=== PATIENT | male | born 1950 | race Caucasian/White ===

== ENCOUNTER 2020-07-13 16:47 | Emergency (ER) | payer MEDICARE, SELFPAY ==
[2020-07-13 16:48] VITALS: BP 101/62; PULSE 90; RESP 17; TEMP 36.9; O2SAT 95; BMI 24.5
[2020-07-13 17:27] LABS: Absolute Lymphocyte Count 0.53 X10^3/uL (0.83-4.51); Absolute Neutrophil Count 8.1 X10^3/uL (2.0-7.7); Basophil# 0.02 X10^3/uL; Basophil% 0.2 % (0-1); Eosinophil# 0.01 X10^3/uL; Eosinophils% 0.1 % (0-5); Hematocrit 45.7 % (40-54); Hemoglobin 15.9 g/dL (13.0-16.5); Lymphocyte # 0.53 X10^3/ul (4.0); Lymphocyte % 5.7 % (19-41); Mean Corp Hgb Conc 34.8 g/dL (32-36); Mean Corpuscular Hgb 31.8 pg (27.0-32.0); Mean Corpuscular Volume 91.4 fL (80-94); Mean Platelet Vol. 11.3 fl (6.2-12.0); Monocyte# 0.57 X10^3/uL; Monocyte% 6.1 % (0-10); NRBC Flagged by Analyzer 0 % (0-5); Neutrophil % 87.4 % (47-70); POSITIVE DIFFERENTIAL YES; Platelet Count 242 K/mm3 (150-450); White Blood Count 9.3 K/mm3 (4.4-11.0)
[2020-07-13 17:29] LABS: Differential Indicated SCAN CRITERIA MET
[2020-07-13 17:49] LABS: Differential Comment SCANNED
[2020-07-13 18:03] LABS: Anion Gap 7 (5-15); BUN 26 mg/dL (7-18); BUN/Creat Ratio 19.8 RATIO (10-20); Calcium,Total 8.8 mg/dL (8.5-10.1); Chloride 98 mmol/L (98-107); Creatinine, Serum 1.31 mg/dL (0.70-1.30); EST Glomerular Filtration Rate 57 mL/min (>60); Est Glom Filt Rate - Afr Amer 70 mL/min (>60); Estimated Creatinine Clearance 57.59 ml/min; Glucose 110 mg/dL (74-106); Potassium 3.6 mmol/L (3.5-5.1); Sodium Level 131 mmol/L (136-145)
--- NOTE | 2020-07-13 18:33 | ED.DCSUM_ITS ---
History of Present Illness Chief Complaint: Nausea/Vomiting/Diarrhea Informant: Patient Onset: Today Narrative: 70-year-old male with past medical history of hypertension and GERD presents with concern for upper respiratory symptoms with nausea. States that approximately 3 weeks ago he received a flu shot and 10 days following began having upper respiratory symptoms. Describes it as a head cold. States he does get sinus infections regularly in the winter. States that over the past few days he has had nausea without vomiting. States he fell in the shower last night and did not strike his head. States he has been feeling somewhat off balance. Denies any urinary symptoms. States that he does have lower back pain. This was present before his fall. Past Medical History - Allergies and Home Meds Allergies/Adverse Reactions: Allergies No Known Allergies Allergy (Verified 07/13/20 16:48) Primary Care Physician: Farhat Coppola MD [Primary Care Provider] - Prior records reviewed: Yes Past Medical History: - - HTN and GERD Lives: Spouse/ Significant Other Smoking Status: Never smoker Alcohol: None Drugs: None Review of Systems General: Reports: Malaise. Denies: Chills, Fever, Sweats Eyes: Denies: Visual changes - bilaterally, Diplopia ENT: Denies: Rhinorrhea, Sore throat Cardiovascular: Denies: Chest pain, Palpitations Respiratory: Reports: Cough. Denies: Dyspnea, Dyspnea on exertion Gastrointestinal: Reports: Nausea. Denies: Abdominal pain, Vomiting, Diarrhea, Melena, Hematochezia Genitourinary: Denies: Dysuria, Hematuria, Frequency Musculoskeletal: Denies: Back pain, Extremity Pain Skin: Denies: Rash, Wounds Neurological: Denies: Headache, Weakness, Numbness Physical Exam Vital Signs/Narrative: Vital Signs Temp Pulse Resp BP Pulse Ox 07/13/20 16:48 98.4 F 90 17 101/62 95 Inital Vital Signs reviewed: Yes General: Well nourished, Well developed, No Acute Distress Head: Normocephalic, Atraumatic Eyes: Perrl, EOMI ENT: Moist mucous membranes, No rhinorrhea Neck: Supple, Nontender Cardiovascular: Regular rate, Regular rhythm, No murmurs Respiratory: No distress, CTA bilaterally, Chest nontender Abdomen: Soft, Nontender, Nondistended, Normal bowel sounds Back: Nontender, Normal Inspection Extremities: Nontender, No edema Skin: Normal color, No rash Neurological: Alert, Oriented x3, Cranial nerves II-XII grossly intact, Normal Strength, Normal Sensation Psychological: Normal affect, Normal Mood Diagnostic/Tx/Re-eval Chest X-Ray - ED: 1 View, Read by ED Physician, Normal Clinical Impression(s) from Imaging Studies Chest X-Ray 07/13/20 19:35 IMPRESSION: No acute cardiopulmonary disease. Electronically Signed: Jey Ness DO at 20:00 EST Tel [phone], Service support , Laboratory Data 07/13/20 07/13/20 07/13/20 16:35 16:35 16:55 WBC 9.3 RBC 5.00 Hgb 15.9 Hct 45.7 MCV 91.4 MCH 31.8 MCHC 34.8 RDW Std Deviation 40.0 RDW Coeff of Leon 12.0 Plt Count 242 MPV 11.3 Immature Gran % (Auto) 0.500 Neut % (Auto) 87.4 H Lymph % (Auto) 5.7 L [place] % (Auto) 6.1 Eos % (Auto) 0.1 Baso % (Auto) 0.2 Absolute Neuts (auto) 8.1 H Absolute Lymphs (auto) 0.53 L Nucleated RBC % 0 Differential Comment SCANNED Sodium 131 L Potassium 3.6 Chloride 98 Carbon Dioxide 26.0 Anion Gap 7 BUN 26 H Creatinine 1.31 H Estim Creat Clear Calc 57.59 Est GFR (MDRD) Af Amer 70 Est GFR (MDRD) Non-Af 57 L BUN/Creatinine Ratio 19.8 Glucose 110 H Calcium 8.8 Troponin I < 0.015 Lipase 346 - Rhythm Strip Rhythm Strip: Sinus Rhythm Rate: 86 Ectopy: None - EKG Initial EKG Interpretation: Sinus Rhythm - Normal sinus rhythm at 86 bpm. NV interval 146 ms. QTC of 464 ms. Right bundle branch block. No evidence of acute ST elevation or depression at this time. - Medical Decision Making Patient appears well and nontoxic. Vital signs within normal limits. EKG nonischemic. Troponin negative. Slight volume depletion. Patient was given 500 mL fluid bolus. Patient feeling improved. Patient be given Zofran for home given his nausea. Patient will be tested for Covid as an outpatient. Asked to return for new or worsening symptoms. Advised on obtaining a pulse oximeter and returning for oxygen saturations less than 90%. Patient agreeable and discharged home in stable condition. Impression: 1. URI 2. Nausea 3. Possible COVID 19 pneumonitis ED Disposition - Plan for ED Patient: Disposition: Home or Assisted Living Instructions: ED PNEUMONITIS Adult Prescriptions: Ondansetron [Zofran Odt] 4 mg PO Q8H PRN PRN #10 tab PRN Reason: Nausea Prescription Printed Referrals: Farhat Coppola MD [Primary Care Provider] - 2 Days
--- NOTE | 2020-07-13 18:34 | EKG12_ITS ---
Test Reason : NAUSEA/VOMITING Blood Pressure : / mmHG Vent. Rate : 086 BPM Atrial Rate : 086 BPM P-R Int : 146 ms QRS Dur : 126 ms QT Int : 388 ms P-R-T Axes : 060 029 009 degrees QTc Int : 464 ms Normal sinus rhythm Right bundle branch block Abnormal ECG Confirmed by JOSSY LUJAN, CARROLL ([id number]), news editor VERÓNICA ALVAREZ ([id number]) on 07/16/2020 2:14:23 PM Referred By: ANTONIA Confirmed By:CARROLL FENTON MD
[2020-07-13 19:34] VITALS: BP 109/92; PULSE 83; RESP 28; O2SAT 94
--- NOTE | 2020-07-13 19:35 | RAD_ITS ---
STUDY: X-RAY CHEST REASON FOR EXAM: Male, 70 years old. Nausea, vomiting and diarrhea for 2 days. Fall last night. TECHNIQUE: Single AP portable view of the chest. COMPARISON: None. FINDINGS: The lungs are clear and expanded. There is no demonstrated pleural abnormality. Normal size heart. Normal mediastinum and nicole. Normal visualized pulmonary arteries. Normal visualized aortic arch and descending thoracic aorta. There are diffuse degenerative changes of the visualized thoracic spine. Normal visualized ribs, clavicles, and shoulders. There is no demonstrated abnormality of the visualized soft tissue structures of the upper abdomen. RAD/Chest 1 View (Portable) IMPRESSION: No acute cardiopulmonary disease. Electronically Signed: Jey Ness DO at 20:00 EST Tel [phone], Service support ,
[2020-07-13 21:11] LABS: Lipase 346 U/L (73-393)
[2020-07-13 22:05] VITALS: BP 117/60; PULSE 73; RESP 24; O2SAT 94
[2020-07-13 23:14] VITALS: BP 110/65; PULSE 84; RESP 18; O2SAT 95
== END 2020-07-14 | disposition home or self-care (01) ==
PROVIDERS: Emergency Provider Emergency Medicine; PCP Family Medicine
DX: J06.9 Acute upper respiratory infection, unspecified (principal); R11.2 Nausea with vomiting, unspecified
CPT/HCPCS: 71045; 80048; 83690; 84484; 85025; 87635; 93005; 96360; 96361; 99283; J7040; A4216; U0003

== ENCOUNTER 2020-07-29 17:08 | Emergency (ER) | payer MEDICARE, SELFPAY ==
[2020-07-29 17:11] VITALS: BP 125/68; PULSE 97; RESP 17; TEMP 36.7; O2SAT 97; BMI 23.9
--- NOTE | 2020-07-29 17:51 | ED.DCSUM_ITS ---
- ER Visit Summary Date of Service: 07/29/20 Chief Complaint: Fall and hit a checkout operator causing a laceration to the lower border of his nose on the left side. History of Present Illness: The patient is a 70 M uses a cane as a history of problems with his balance, reflux, hypertension and status post diagnosed with Covid 2+ weeks ago. Patient states he simply lost his balance today when he bent over to get something tripped stumbled into the checkout operator causing a laceration to the undersurface of his upper lip and nose. He also knocked loose with his left upper incisors. He denies any LOC. Denies any neck pain. Denies any other injuries. Last tetanus shot was 2016 4 years ago. Physical Examination: Older male no acute distress vital signs stable afebrile. H EENT exam is a superficial laceration to the lateral aspect of his left nose it does not go through and through it does not go into the naris but on that inferior surface of his nose and upper lip but it does not involve the lip or the vermilion border he has a deep laceration involves the skin and subcu tissue. Mild oozing. No pulsatile bleeding. His left upper pre-molar is loose but still in place. Jaw is nontender to open close his mouth. No other facial trauma. Scalp nontender no trauma. C-spine nontender. Normal range of motion. Lungs clear to auscultation. Chest wall nontender. Heart regular rate and rhythm no murmur. Abdomen soft nontender normal bowel sounds no peritoneal signs. Pelvic girdle intact. He is moving all 4 extremities. 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 Normal dorsi plantarflexion. Back is nontender. There is no deformities or tenderness to any of the extremities. Neurologically is awake and alert. Test Results: None Emergency Department Course and Treatment: Tetanus is already up-to-date. V applied to the facial laceration involving the left part of his nose. It will be locally anesthetized with lidocaine. Cleaned explored and closed using 5-0 Ethilon sutures. Proper hemostasis wound closure is obtained. There is no foreign body. He was instructed on wound care. Procedure note there is actually 2 lacerations. The left lateral nose and I cleaned it separate had to be closed. It was anesthetized with subcu lidocaine. Washed explored and closed using 4 simple interrupted 5-0 Ethilon sutures. Proper hemostasis wound closure is obtained. Is approximately 3 cm in length. The laceration below his left nares on the skin was approximately 3 to 4 cm in length. Again locally anesthetized. Clean washed explored and closed using 5 simple interrupted 5-0 Ethilon sutures. There were a total of 9 sutures used. Patient tolerated procedure well. Good hemostasis wound closure obtained. Treatment Plan: Wound care. Watch for any signs of infection. Ice to the area. Tylenol for pain. Suture removal in 7 to 10 days. Return if any signs of infection. Disposition: Discharge Impression: Fell Left facial laceration between the nose and lip laceration of 6-7 cm with ER repair Left upper premolar partial avulsion This note was generated with [employer] dictation software. It may contain incorrect words, spelling, and punctuation that were not noted in review of the chart prior to signing ED Disposition - Plan for ED Patient: Disposition: Home or Assisted Living Instructions: Dental Trauma, ED Laceration All Closures Referrals: Farhat Coppola MD [Primary Care Provider] - 10 Day for suture removal Additional Instructions: Tylenol for pain. Keep the laceration clean. May use soap and water or peroxide and water. Keep it dry. You may shower or bathe which is dried off well. Watch for any signs of infection such as pus, swelling, redness or fever seen return. Suture removal in 7 to 10 days. Follow-up with your dentist to have that left upper tooth reevaluated. It was obviously knocked loose when you fell.
--- NOTE | 2020-07-29 17:54 | ED.DEP ---
ED Disposition - Plan for ED Patient: Disposition: Home or Assisted Living Instructions: ED Laceration All Closures, Dental Trauma Referrals: Farhat Coppola MD [Primary Care Provider] - 10 Day for suture removal Additional Instructions: Tylenol for pain. Keep the laceration clean. May use soap and water or peroxide and water. Keep it dry. You may shower or bathe which is dried off well. Watch for any signs of infection such as pus, swelling, redness or fever seen return. Suture removal in 7 to 10 days. Follow-up with your dentist to have that left upper tooth reevaluated. It was obviously knocked loose when you fell.
[2020-07-29] MEDS: Lidocaine 1% (20 ml mdv) 20 ML Vial INFILT (18:09)
== END 2020-07-29 18:51 | disposition home or self-care (01) ==
PROVIDERS: Emergency Provider Emergency Medicine; PCP Family Medicine
DX: S01.81XA Laceration without foreign body of other part of head, initial encounter (principal); S01.511A Laceration without foreign body of lip, initial encounter; K21.9 Gastro-esophageal reflux disease without esophagitis; W19.XXXA Unspecified fall, initial encounter
CPT/HCPCS: 12014; 99282

== ENCOUNTER 2024-07-30 13:52 | Emergency (ER) | payer MEDICARE, SELFPAY ==
[2024-07-30 13:53] VITALS: BP 145/102; PULSE 83; RESP 16; TEMP 36.5; O2SAT 100; BMI 24.7
--- NOTE | 2024-07-30 14:20 | EDS_ITS ---
HPI History of Present Illness Chief Complaint: Lower Extremity Injury Detail of Chief Complaint: Lower back pain resolved. Informant: patient Onset/Context/Timing Onset: Today Injury: lifting Timing: Intermittent Quality: Sharp Location: Lumbar, Buttock and Left Leg Current Severity: Gone Maximum Severity: Mild Worsened by: improves with Movement Relieved by: Remaining Still Associated Symptoms Associated Symptoms: Radiation to Left Leg Narrative Narrative: 74-year-old male was carrying about 30 pound box since her to slip and he developed pain in his lower back left buttock and left leg. That is now completely resolved. At the time it was worse with movement. He had some weakness in his left knee is developed. It is all now totally resolved. He denies any pain in his back or leg. No weakness. No bowel or bladder incontinence. No retention. No numbness. No prior back history of back surgery. He did not fall. Prior similar symptoms: No Recent Illness/Hospitalization: No PFSH PFS Medical History Acid reflux HTN (hypertension) Home Medications ?Medication ?Instructions ?Recorded ?Last Taken ?Type ondansetron 4 mg disintegrating 4 mg PO Q8H PRN PRN Nausea #10 tabs 07/13/20 Unknown Rx tablet lisinopril 10 1 ea PO 07/29/20 Unknown History mg-hydrochlorothiazide 12.5 mg tablet omeprazole 20 mg capsule,delayed 20 mg PO DAILY 07/29/20 Unknown History release Allergy/AdvReac Type Severity Reaction Status Date / Time No Known Allergies Allergy Verified 07/30/24 13:53 Social History Smoking Status: Never smoker ROS ROS ED ROS Narrative Denies recent illness. Constitutional Constitutional ED: Denies chills or fever(s) Eyes Eyes: Denies blurry vision ENT ENT ED: Denies ear pain Respiratory/Chest Respiratory/Chest: Denies dyspnea Gastrointestinal Gastrointestinal: Denies abdominal pain Musculoskeletal Musculoskeletal: Denies arthralgias Integumentary Denies abscess Neurologic Neurologic: Denies headache(s) Psychiatric Psychiatric: Denies anxiety or depression Endocrine Endocrinology: Denies cold intolerance Hematologic/Lymphatic Hematologic/Lymphatic: Denies easy bleeding Allergic/Immunologic Allergic/Immunologic ED: Denies mouth swelling EXAM Physical Exam Narrative Exam Narrative: Well-appearing 74-year-old male. Vital signs stable afebrile. H EENT exam unremarkable. Mytrex members. Neck nontender. Lungs clear to auscultation bilateral. Heart regular rate and rhythm rate about 80 no murmur. Chest wall ribs nontender. Abdomen soft nontender. Moving all 4 extremities. 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 Dorsi plantarflexion intact. 5 out of 5 strength. Normal sensation. No cauda equina. No saddle anesthesia. Normal medial thigh sensation. Negative straight leg raise bilaterally. Normal range of motion both upper and lower extremities. Back currently has absolutely no reproducible tenderness on his back. No spinal tenderness. No paraspinal tenderness. No redness or warmth no bruising. He can sit up and lay down without any difficulty. Neurologically he is awake and alert. With normal motor strength and sensation. No weakness. Const Vital Signs: 07/30/24 13:53 Temperature 97.7 F L Temperature Source Temporal Pulse Rate 83 Respiratory Rate 16 Blood Pressure 145/102 H Blood Pressure Mean 116 Pulse Ox 100 Oxygen Delivery Method Room Air Positive well nourished and well developed; Negative for obese, cachectic, contractures or unkempt General Appearance ED: well developed and NAD; Negative for unkempt, cachectic, contractures or pallor Nutritional Appearance: Negative for cachectic or obese HEENT Reports moist mucous membranes Negative for trauma or tenderness Eyes PERRL and EOMs intact bilaterally General Eye ED: Negative for pale conjunctiva or scleral icterus Neck no lymphadenopathy, supple and no JVD General: Negative for tenderness Thyroid: Negative for other Chest Wall Chest: Negative for other Resp normal respiratory effort and clear to auscultation bilaterally Effort and Inspection: Negative for pain with movement Auscultation: Negative for rales, rhonchi or wheezes Cardio regular rate, regular rhythm, S1 normal heart sound, S2 normal heart sound and no murmurs Palpation: Negative for palpable S3 Rate: Negative for bradycardia or tachycardic Rhythm: Negative for abnormal rhythm Bruits: Negative for other GI normal to inspection, nondistended, normoactive bowel sounds, soft to palpation, non-tender, non-distended and no masses Inspection: Negative for abdominal distention Palpation: Negative for tender, guarding or rebound tenderness present Back/Spine normal to inspection and no thoracic nor lumbar tenderness General Back: Negative for CVA tenderness Cervical Spine: Negative for cervical spine tenderness Thoracic Spine / Upper Back: Negative for paraspinal muscle tenderness Lumbar Spine / Lower Back: Negative for ROM limited Extremity normal to inspection and no clubbing, cyanosis or edema General Extremety ED: Negative for edema or tenderness General Extremity: Negative for edema Neuro oriented x3 and no sensory deficits noted Sensorium / Orientation: Negative for confused, lethargic or stuporous Motor Exam: strength 5/5 throughout Psych mental status grossly normal Appearance: Negative for unkempt Attitude: No agitated and No other Mood & Affect: Negative for depressed, sad or tearful Skin no rashes or lesions noted and no wounds General Skin Exam: Negative for jaundice or pallor Lesions: No lesion noted Rashes: No rashes noted Trauma: Negative for abrasion or puncture Wounds: Negative for wounds noted MDM MDM MDM Narrative Medical decision making narrative: 74-year-old male transient back pain rating to his left leg after carrying a box that he almost dropped. Twisted his back. No back history. Currently he is completely symptom-free. No pain or numbness. There is a normal exam. He does not need any imaging or test. Outpatient follow-up as needed. Return if worse. Patient is comfortable with the plan. History & Record Review Discussion w/independent historian: Patient Additional record(s) reviewed:: Prior inpatient record, Prior outpatient record, Prior ED visit and Prior labs Discharge Plan Triage Chief Complaint: Lower Extremity Injury ED Provider: Jesse Tracy Dx/Rx/DC Orders Clinical Impression: Lumbar strain Instructions: ED Back Sprain/Strain Prescriptions: No Action ondansetron 4 MG tablet 4 mg PO Q8H PRN PRN (Reason: Nausea) Qty: 10 0RF omeprazole 20 MG capsule,delayed release(DR/EC) 20 mg PO DAILY lisinopril-hydrochlorothiazide 1 EACH tablet 1 ea PO Primary Care Provider: Farhat Coppola Referrals: Farhat Coppola MD [Primary Care Provider] - 1 Week if not improving Activity Restrictions/Additional Instructions: Tylenol and ibuprofen for pain. Currently you have no symptoms. If you develop consistent pain, weakness in your lower extremity or bowel or bladder incontinence or retention either follow-up with your doctor or here. At this time you do not need any imaging or test. Print Language: Faroese Disposition Disposition: Home, Self Care
== END 2024-07-30 14:42 | disposition home or self-care (01) ==
PROVIDERS: Emergency Provider Emergency Medicine; PCP Family Medicine; Visit Provider Emergency Medicine
DX: S39.012A Strain of muscle, fascia and tendon of lower back, initial encounter (principal); X50.1XXA Overexertion from prolonged static or awkward postures, initial encounter; I10 Essential (primary) hypertension; K21.9 Gastro-esophageal reflux disease without esophagitis; Z79.899 Other long term (current) drug therapy
CPT/HCPCS: 99282